=== PATIENT | female | born 1940 | race Caucasian/White ===

== ENCOUNTER 2019-06-03 10:22 | Outpatient (CLI) | payer MEDICARE, SELFPAY ==
[2019-06-03] VITALS (7 sets, daily range): BP systolic 89–150; BP diastolic 62–89; PULSE 84–95; RESP 16–18; TEMP 36.2; O2SAT 93–98
--- NOTE | 2019-06-03 10:27 | DI.RAD.S_ITS ---
PROCEDURE: PAIN L/SI FACET INJ/BLK 1STL INDICATIONS: SPONDYLOSIS FINDINGS: Fluoroscopic spot filming was performed to verify placement of spinal needles at the left L4-L5 and L5-S1 level(s), as labeled on the films. Appropriate location(s) of the needle tip(s) was confirmed by injection of iodinated contrast. IMPRESSION: Left L4-L5 and L5-S1 needle placement. Dictated by: Bob Silverman M.D. on 06/03/2019 at 13:21 Approved by: Bob Silverman M.D. on 06/03/2019 at 13:21
[2019-06-03] MEDS: MIDAZOLAM 5 MG/5 ML VIAL IV (11:16)
[2019-06-03] MEDS: fentaNYL 100 MCG/2 ML INJ 50 MCG IV (11:18)
[2019-06-03] MEDS: LIDOCAINE 1% 20 ML 10 ML INJ (11:30)
[2019-06-03] MEDS: BUPIVACAINE 0.5% (PF) VIAL 2 ML INJ (11:30)
[2019-06-03] MEDS: IOPAMIDOL 15 ML VIAL 3 ML INJ (11:30)
[2019-06-03] MEDS: BETAMETHASONE 30 MG/5 ML MDV 12 MG INJ (11:30)
--- NOTE | 2019-06-03 11:37 | P.PCN_ITS ---
Procedures Date/Time Date of procedure: 06/03/19 Time of procedure: 11:37 General Procedure description: PREOP DIAGNOSIS 1. FACET ARTHROPATHY, 2. AXIAL LBP, 3. MULTILEVEL DDD, POST OP DIAGNOSIS 1. FACET ARTHROPATHY, 2. AXIAL LBP, 3. MULTILEVEL DDD, PROCEDURES 1. FLUORSCOPICALLY GUIDED CONTRAST CONTROLLED FACET JOINT INJECTIONS LEFT L4/5, L5/S1 SURGEON: Benny Schultz, DO INDICATIONS Ngozi is referred by for treatment of Axial LBP FINDINGS Multilevel Facet Arthropathy with Clinically significant axial LBP DESCRIPTION OF PROCEDURE Fluoroscopically guided, contrast-controlled left L4/5, L5/S1 facet joint in jections. Following review of allergy and review of potential side effects and complications, including, but not necessarily limited to, infection, allergic reaction, local tissue breakdown, stroke, temporary or permanent nerve injury, paralysis, and possible , the patient indicated that the patient understood and agreed to proceed. An informed consent document was signed by the patient, witnessed by a nurse, and placed in the patient's chart. Additionally, other treatment options including medications, modalities, and physical therapy were reviewed with the patient. After review of previous anaesthesic history and IV conscious sedation the patient was deemed safe to proceed with todays procedure with IV conscious sedation as ASA class II designation. Safety time-out was performed to confirm patient ID, procedure to be performed and site of procedure. IV sedation was accomplished with a combination of 2mg of Versed and 50mcg of Fentanyl was administered by the RN after DO order, titrated to patient comfort during the course of the procedure while the patient remained responsive to all verbal commands. In the prone position, following sterile prep and drape of the lumbar region, the posterior aspect of the left L4/5, L5/S1 facet joints were identified fluoroscopically. The skin was anesthetized via a 25-gauge 1.5-inch needle with 1% lidocaine solution into the corresponding facet joints. At this point, a 22- gauge 3.5-inch spinal needle was atraumatically introduced and advanced under fluoroscopic guidance into the corresponding facet joints. Following negative aspiration, injections of approximately 0.2-cc of Isovue 200 confirmed interarticular placement without vascular uptake. Radiological data, including multiple fluoroscopic views of the lumbosacral spine, reveal a spinal needle at the left L4/5, L5/S1 facet joints. Subsequent views show flow of contrast material both superiorly and inferiorly within the joint space without vascular or intrathecal uptake. At this point, a total of 0.5cc including a mixture of 0.25cc Marcaine and 0.25cc betamethasone was injected without complication into each of the corresponding facet joints. The procedure tolerated the procedure well without signs or symptoms of complications prior to transfer to the recovery area continued monitoring without incident. The patient was then transferred to the recovery area where they were observed for an appropriate period of time after the injection. The patient reported a VAS score of 7 prior to the procedure and a post-procedure VAS of 0. Total Fluoroscopy Time: 12.7 seconds Total Conscious Sedation Time: 24min POST OP INSTRUCTIONS The patient was provided a Pain Log to continue to record their response to the target-specific procedure prior to follow-up visit with their referring physician. Additionally, specific post-injection care instructions and a contact number to our office were provided if concerns arise regarding possible compli cations associated with the procedure are suspected. Benny Schultz DO Complications: none
--- NOTE | 2019-06-03 11:43 | PC.NURSE ---
ACCEPTED CARE OF PT IN POST PROC AREA IN STABLE CONDITION.
--- NOTE | 2019-06-03 17:26 | PC.NURSE ---
Late entry post procedure note: Time out at 1114. Medicated per providers orders. VSS and O2 Sat WNL throughout procedure. Tolerated procedure well with minimal discomfort. Transferred to / without difficulties. Handoff report given to Juanita Castillo RN. No complaints of pain or unusual numbness or tingling.
== END 2019-06-03 12:02 | disposition home or self-care (01) ==
LOC: RAD 10:27
PROVIDERS: Family Provider Internal Medicine; PCP Internal Medicine; Visit Provider Physical Medicine & Rehabilitation
DX: M47.816 Spondylosis without myelopathy or radiculopathy, lumbar region (principal); M47.817 Spondylosis without myelopathy or radiculopathy, lumbosacral region; M54.5 Low back pain; M51.36 Other intervertebral disc degeneration, lumbar region; M51.37 Other intervertebral disc degeneration, lumbosacral region
CPT/HCPCS: 64493; 64494; 99152; J0702; J2250; J3010

== ENCOUNTER 2019-08-22 14:37 | Outpatient (CLI) | payer MEDICARE, SELFPAY ==
[2019-08-22] VITALS (9 sets, daily range): BP systolic 119–161; BP diastolic 40–109; PULSE 83–94; RESP 16; O2SAT 95–98
--- NOTE | 2019-08-22 14:40 | DI.RAD.S_ITS ---
PROCEDURE: PAIN L/SI FACET INJ/BLK 1STL INDICATIONS: IDIOPATHIC SCOLIOSIS FINDINGS: Fluoroscopic spot filming was performed to verify placement of spinal needles at the L4, L5, S1 level(s), as labeled on the films. Appropriate location(s) of the needle tip(s) was confirmed by injection of iodinated contrast. Dictated by: Nick Bryant M.D. on 08/22/2019 at 17:07 Approved by: Nick Bryant M.D. on 08/22/2019 at 17:07
[2019-08-22] MEDS: MIDAZOLAM 5 MG/5 ML VIAL IV (15:41)
[2019-08-22] MEDS: LIDOCAINE 1% 20 ML 10 ML INJ (15:56)
[2019-08-22] MEDS: IOPAMIDOL 15 ML VIAL 3 ML INJ (15:56)
[2019-08-22] MEDS: BUPIVACAINE 0.5% (PF) VIAL 2 ML INJ (15:56)
--- NOTE | 2019-08-22 16:03 | P.PCN_ITS ---
Procedures Date/Time Date of procedure: 08/22/19 Time of procedure: 16:03 General Procedure description: POST OP DIAGNOSIS 1. FACET ARTHROPATHY PROCEDURES 1. Left L4, L5 and S1 MB BLOCKS PHYSICIAN: DO MAKAYLA Rowley Ngozi is referred by for treatment of Left Axial LBP. DESCRIPTION OF PROCEDURE Fluoroscopically guided, contrast-controlled left L4, L5 and S1 medial branch blocks with 0.5cc of 0.5% Marcaine. Following review of allergy and review of potential side effects and complications, including, but not necessarily limited to, infection, allergic reaction, local tissue breakdown, nerve injury, paralysis, stroke and possible , the patient indicated that the patient understood and agreed to proceed. An informed consent document was signed by the patient, witnessed by a nurse, and placed in the patient's chart. After review of previous anaesthesic history and IV conscious sedation the patient was deemed safe to proceed with todays procedure with IV conscious sedation as ASA class II designation. Safety time-out was performed to confirm patient ID, procedure to be performed and site of procedure. IV sedation was accomplished with a combination of 4mg of Versed and 50mcg of Fentanyl was administered by the RN after DO order, titrated to patient comfort during the course of the procedure while the patient remained responsive to all verbal commands. In the prone position, following sterile prep and drape of the lumbar region, the left L4, L5 and S1 anatomical location of the medial branch of the dorsal ramus was identified fluoroscopically. Subsequently an anesthetic skin wheal using 1% lidocaine solution was initiated at each of the anatomical spots. Subsequently then a 25-gauge 3.5-inch spinal needle was atraumatically introduced and advanced under fluoroscopic guidance at each of the corresponding sites at the left L4, L5 and S1 MB. After negative aspiration, 0.2cc of Isovue 200 was injected, confirming placement without vascular or intrathecal uptake. Subsequently then 0.5cc of 0.5% Marcaine solution was injected at each of the corresponding sites at the left L4, L5 and S1 medial branch locations. The patient tolerated the procedure well without signs or symptoms of complications. The patient tolerated the procedure well without signs or symptoms of complications prior to transfer to the recovery area continued monitoring without incident. Post-procedure, the patient was monitored initiating provocative activities to measure the amount of relief from block of the facetogenic pain. The patient reported a VAS of 7 prior to the procedure and a post-procedure VAS of 1. It has been a pleasure to assist in the diagnostic and therapeutic care of your patient. Total Fluoroscopy Time: 5 seconds Total Conscious Sedation Time: 24 min POST OP INSTRUCTIONS The patient was provided with a Pain Log to complete over the next several hours and subsequent days prior to the patient's follow up with the ordering physician. If the patient has pediatric occupational therapist relief to the solution applied, then they may be a candidate for medial branch rhizotomy. The patient is aware, was provided, once again, with a Pain Log and will follow up with the referring physician for review and clinical correlation. Benny Schultz DO Complications: none
--- NOTE | 2019-08-22 16:08 | PC.NURSE ---
Post procedure transfer note: Patient medicated per providers order for sedation. patient moved throughout procedure secondary to parkinsons. VSS throughout. O2 Sat WNL on 2L/MANAGER DIGITAL. Able to transfer to w/c with 2 standby assist. Pain level 0/10. Handoff report given to Juanita Castillo. Patient transfered to recliner with stand by assist. No complaints of pain on arrival. VSS. on arrival post procedure.
--- NOTE | 2019-08-22 16:08 | PC.NURSE ---
ACCEPTED CARE OF PT IN POST PROC AREA IN STABLE CONDITION AT 1605. VSS, A&OX4, MOBILITY AT BASELINE WITH TREMORS AND UNSTEADY GAIT RT MULTPLESCLEROSIS.
== END 2019-08-22 17:23 | disposition home or self-care (01) ==
LOC: RAD 14:38
PROVIDERS: Family Provider Internal Medicine; PCP Internal Medicine; Visit Provider Physical Medicine & Rehabilitation
DX: M47.817 Spondylosis without myelopathy or radiculopathy, lumbosacral region (principal); M47.816 Spondylosis without myelopathy or radiculopathy, lumbar region; M54.5 Low back pain
CPT/HCPCS: 64493; 64494; 99152; J2250; J3010

== ENCOUNTER → 2019-12-15 09:37 | Outpatient (CLI) | payer MEDICARE, SELFPAY ==
[2019-12-15 21:06] LABS: COVID19 Sendout Not Detected (Not Detect)
== END ==
PROVIDERS: Family Provider Internal Medicine; PCP Internal Medicine; Visit Provider Registered Nurse
DX: Z01.818 Encounter for other preprocedural examination (principal)
CPT/HCPCS: 87635

== ENCOUNTER 2019-12-18 10:02 | Outpatient (CLI) | payer MEDICARE, SELFPAY ==
[2019-12-18] VITALS (9 sets, daily range): BP systolic 105–157; BP diastolic 63–100; PULSE 83–99; RESP 14–16; TEMP 36.6; O2SAT 96–100
--- NOTE | 2019-12-18 10:04 | DI.RAD.S_ITS ---
PROCEDURE: PAIN L/S MED/LAT N RFA INDICATIONS: SPONDYLOSIS FINDINGS: Fluoroscopic spot filming was performed to verify placement of spinal needles at the left L4, L5, and S1 medial branch block areas for rhizotomy level(s), as labeled on the films. Appropriate location(s) of the needle tip(s) was confirmed by injection of iodinated contrast. IMPRESSION: Successful needle tip localizations on the left for rhizotomy procedures as noted. Dictated by: Darin Bhatt M.D. on 12/18/2019 at 15:11 Approved by: Darin Bhatt M.D. on 12/18/2019 at 15:12
[2019-12-18] MEDS: fentaNYL 100 MCG/2 ML INJ 50 MCG IV (11:29)
[2019-12-18] MEDS: MIDAZOLAM 5 MG/5 ML VIAL IV (11:37)
[2019-12-18] MEDS: BUPIVACAINE 0.5% (PF) VIAL 5 ML INJ (11:49)
[2019-12-18] MEDS: LIDOCAINE 1% 20 ML 10 ML INJ (11:49)
--- NOTE | 2019-12-18 11:52 | PC.NURSE ---
ASSISTING PT OFF TABLE AND TRANSPORTING TO POST PROC AREA IN STABLE CONDITION.
--- NOTE | 2019-12-18 12:01 | P.PCN_ITS ---
Procedures Date/Time Date of procedure: 12/18/19 Time of procedure: 12:01 General Procedure description: PREOP DIAGNOSIS 1. RECALCITRANT FACET ARTHROPATHY, POST OP DIAGNOSIS 1. RECALCITRANT FACET ARTHROPATHY, PROCEDURES 1. LEFTT L4 AND L5 MEDIAL BRANCH RADIOFREQUENCY NEUROTOMY AND LEFT S1 DORSAL RAMUS RADIOFREQUENCY NEUROTOMY, PHYSICIAN: DO MAKAYLA Rowley Ngozi is referred by for treatment of facet arthropathy. DESCRIPTION OF PROCEDURE Left L4 and L5 medial branch radiofrequency neurotomy and left S1 dorsal ramus branch radiofrequency neurotomy under fluoroscopy with conscious sedation. The patient is well known to this clinic having undergone previous facet injections with good but temporary relief. The patient has experienced appropriate, concordant relief with previous facet and median branch blocks but the patient's pain has been recalcitrant to further conservative measures. Therefore, based upon the patient's relief and persistent symptoms, the patient is considered an appropriate candidate for facet rhizotomy. All of the patient's questions regarding the risks versus benefits of the procedure, including, but not limited to, bleeding, infection, temporary as well as lasting nerve injury, paralysis, stroke, and , as well treatment alternatives were answered to satisfaction. After obtaining informed consent, denial of pertinent drug allergies, as well as being made aware of the potential risks of bleeding, infection, spinal cord trauma, paralysis, temporary and permanent nerve damage, seizure, stroke, and possible , the patient was brought to the fluoroscopy suite and positioned prone on the fluoroscopy table. The lumbar region was prepped with Betadine and covered with a fenestrated drape in the usual sterile fashion. Appropriate monitors applied including pulse oximeter, pulse, and blood pressure for regular monitoring throughout the procedure. IV sedation was accomplished with a combination of 2mg of Versed and 50mcg of Fentanyl titrated to patient comfort during the course of the procedure while the patient remained responsive to all verbal commands. After local infiltration using 1% lidocaine, under fluoroscopic guidance, a 10- cm RF insulated needle with a 10-mm active tip was positioned parallel to the junction of the left sacral ala and the superior articulating process where the S1 dorsal ramus resides. Needle placement was confirmed with sensory stimulation at 50 Hz, with motor stimulation of .5v on the left which produced local stimulation without radicular component. The stimulation was then increased to 1.5v with, once again, only local multifidus stimulation without radicular component. This was then followed by two discreet lesions performed at 80 degrees Celsius for 90 seconds each. The needle was then removed and the identical procedure was performed along the length of the left L5 medial branch with motor stimulation at .7v on the leftt. The identical procedure was once again performed along the length of the left L4 medial branch with motor stimulation of .5v on the left. The patient tolerated the procedure well without signs or symptoms of complications prior to transfer to the recovery area continued monitoring without incident. The patient was then transferred to the recovery area where they were observed for an appropriate period of time after the injection. The patient was then transferred to the recovery area where they were observed for an appropriate period of time after the injection. The patient reported a VAS score of 9 prior to the procedure and a post- procedure VAS of 0. Total Fluoroscopy Time: 8 seconds Total Conscious Sedation Time: 34min POST OP INSTRUCTIONS The patient was provided a Pain Log to continue to record the patient's response to the target-specific procedure prior to the patient's follow-up visit with the referring physician. Additionally, specific post-injection care instructions and a contact number to our office were provided if concerns arise regarding possible complications associated with the procedure are suspected. Benny Schultz, Complications: none
== END 2019-12-18 12:22 | disposition home or self-care (01) ==
LOC: RAD 10:04
PROVIDERS: Family Provider Internal Medicine; Referring Provider Physical Medicine & Rehabilitation; Visit Provider Physical Medicine & Rehabilitation
DX: M47.816 Spondylosis without myelopathy or radiculopathy, lumbar region (principal); M47.817 Spondylosis without myelopathy or radiculopathy, lumbosacral region
CPT/HCPCS: 64635; 64636; 99152; J2250; J3010

== ENCOUNTER → 2020-02-28 08:57 | Outpatient (CLI) | payer MEDICARE, SELFPAY ==
[2020-03-01 21:03] LABS: COVID19 Sendout Not Detected (Not Detect)
== END ==
PROVIDERS: Family Provider Internal Medicine; Visit Provider Physician Assistant
DX: Z11.59 Encounter for screening for other viral diseases (principal)
CPT/HCPCS: 87635

== ENCOUNTER 2020-03-02 08:49 | Outpatient (CLI) | payer MEDICARE, SELFPAY ==
[2020-03-02] VITALS (9 sets, daily range): BP systolic 101–138; BP diastolic 53–78; PULSE 68–89; RESP 15–18; TEMP 36; O2SAT 97–100
--- NOTE | 2020-03-02 09:00 | DI.RAD.S_ITS ---
PROCEDURE: PAIN L/S TRANSFORAMINAL INJECT INDICATIONS: SPONDYLOSIS COMPARISON: None. FINDINGS: Fluoroscopic spot filming was performed to verify placement of spinal needles at the L3-L4 level(s), as labeled on the films. Appropriate location(s) of the needle tip(s) was confirmed by injection of iodinated contrast. Dictated by: Nick Bryant M.D. on 03/02/2020 at 10:45 Approved by: Nick Bryant M.D. on 03/02/2020 at 10:46
--- NOTE | 2020-03-02 09:44 | PC.NURSE ---
Pt having a bad day with parkinson's. Difficulty ambulating. Dr Schultz aware. Pt concerned for med administration needed at 1100. Reassured her we will ensure she takes her meds on time. Vital stable. Pain 310
[2020-03-02] MEDS: fentaNYL 100 MCG/2 ML INJ 50 MCG IV (10:11)
[2020-03-02] MEDS: MIDAZOLAM 5 MG/5 ML VIAL IV (10:11)
[2020-03-02] MEDS: BUPIVACAINE 0.25% (PF) VIAL 2 ML INJ (10:12)
[2020-03-02] MEDS: IOPAMIDOL 15 ML VIAL 3 ML INJ (10:12)
[2020-03-02] MEDS: BETAMETHASONE 30 MG/5 ML MDV 6 MG INJ (10:12)
[2020-03-02] MEDS: DEXAMETHASONE 10 MG/ML VIAL 20 MG INJ (10:12)
--- NOTE | 2020-03-02 10:20 | P.PCN_ITS ---
Date/Time/Diagnoses Date of procedure: 03/02/20 Time of procedure: 10:20 Pre-procedure diagnosis: 1. FORAMINAL STENOSIS WITH LE SYMPTOMS Post-procedure diagnosis: same Procedure Notes Procedure: 1. FLUOROSCOPICALLY GUIDED CONTRAST CONTROLLED TRANSFORAMINAL EPIDURAL STEROID INJECTION - LEFT L3/4 TFESI Indications: Ngozi is referred by Dr. Foster for treatment of Foraminal Stenosis with left LE Symptoms Physician: Benny Schultz Total Fluoroscopy time (seconds): 6 Total sedation minutes: 8 Complications: none Procedure in detail & Post-procedure care: FINDINGS Foraminal Nerve Root Compression secondary to disc disease and facet hypertrophy DESCRIPTION OF PROCEDURE Following review of allergy and review of potential side effects and complications, including, but not necessarily limited to, infection, allergic reaction, local tissue breakdown, stroke, temporary or permanent nerve injury, paralysis, and possible , the patient indicated that the patient understood and agreed to proceed. An informed consent document was signed by the patient, witnessed by a nurse, and placed in the patient's chart. Additionally, other treatment options including medications, modalities, and physical therapy were reviewed with the patient. After review of previous anaesthesic history and IV conscious sedation the patient was deemed safe to proceed with today?s procedure with IV conscious sedation as ASA class II designation. Safety time-out was performed to confirm patient ID, procedure to be performed and site of procedure. IV sedation was accomplished with a combination of 2mg of Versed and 50mcg of Fentanyl was administered by the RN after DO order, titrated to patient comfort during the course of the procedure while the patient remained responsive to all verbal com mands In the prone position following sterile prep and drape of the lumbar region, the left L3/4 posterior neuroforamen was identified fluoroscopically. The skin was anesthetized via a 25-gauge 1.5-inch needle with 1% lidocaine solution. At this point, a 25-gauge 3.5-inch spinal needle was atraumatically introduced and advanced under fluoroscopic guidance through the posterior left L3/4 neurofo ramen to approximately the anterior aspect of the canal. Depth was confirmed on lateral view. Following negative aspiration, injection of approximately 1.5 cc of Isovue 200 under live fluoroscopy in the AP view confirmed excellent flow along the nerve root, into the epidural space without vascular or intrathecal uptake observed Radiological data, including multiple fluoroscopic views of the lumbosacral spine, reveal a spinal needle at the left L3/4 posterior neuroforamen. Subsequent views show flow of contrast material flowing superiorly and inferiorly along the nerve root confirming epidural flow. Subsequently, a test dose of 1.5 cc of 1% lidocaine solution was administered and patient was observed for two minutes for signs or symptoms of complications, including abdominal pain, shortness of breath, bilateral upper or lower extremity weakness, nausea and vomiting, prior to steroid injection. At this point, a total of 3cc or 20mg of dexamethasone and 6mg betamethasone was inj ected without incident. The patient tolerated the procedure well without signs or symptoms of complications prior to transfer to the recovery area continued monitoring without incident. The patient was then transferred to the recovery area where they were observed for an appropriate time after the injection. The patient reported a VAS score of 7 prior to the procedure and a post-procedure VAS of 0. POST OP INSTRUCTIONS The patient was provided a Pain Log to continue to record their response to the target-specific procedure prior to follow-up visit with their referring physician. Additionally, specific post-injection care instructions and a contact number to our office were provided if concerns arise regarding possible complications associated with the procedure are suspected.
--- NOTE | 2020-03-02 10:37 | PC.NURSE ---
Pt tolerated procedure well. Denies pain. Tolerating cookies and water. Friend is driving her home. IV removed without issue. Will monitor vitals Q5 until 1050. Vitals stable.
--- NOTE | 2020-03-02 12:31 | PC.NURSE ---
1020: tolerated procedure well, 2PA to transfer from table to , returned to pre proc room for observation
--- NOTE | 2020-03-02 15:52 | PC.NURSE ---
1022 pt tolerated procedure well, 2PA transfer from table to . returned to pre proc room for further observation
== END 2020-03-02 10:55 ==
PROVIDERS: Family Provider Internal Medicine; Referring Provider Physical Medicine & Rehabilitation; Visit Provider Physical Medicine & Rehabilitation
DX: M48.061 Spinal stenosis, lumbar region without neurogenic claudication (principal); M51.16 Intervertebral disc disorders with radiculopathy, lumbar region
CPT/HCPCS: 64483; 99152; J0702; J1100; J2250; J3010

== ENCOUNTER → 2020-04-19 12:13 | Outpatient (CLI) | payer MEDICARE, SELFPAY ==
--- NOTE | 2020-04-19 12:15 | DI.RAD.S_ITS ---
PROCEDURE: XR LUMBAR SPINE MIN 4V INDICATIONS: lumba pain TECHNIQUE: 5 views of the lumbar spine were acquired. COMPARISON: None. FINDINGS: Bones: No fracture. Multilevel degenerative endplate sclerosis and spurring. Diffuse facet arthropathy. Severe narrowing of the L2-L3 disc space. Grade 1 anterolisthesis of L2 on L3 and L3 on L4. Levocurvature. Bilateral hip joint degeneration. Sacroiliac degenerative sclerosis and spurring. Soft tissues: Overlying bowel gas pattern is normal. No suspicious soft tissue calcifications. Oblique images: No pars defects. IMPRESSION: Multilevel lumbar spondylosis and levoscoliosis as above Dictated by: Nick Bryant M.D. on 04/19/2020 at 12:52 Approved by: Nick Bryant M.D. on 04/19/2020 at 12:56
== END ==
PROVIDERS: Family Provider Internal Medicine; Referring Provider Physical Medicine & Rehabilitation; Visit Provider Physical Medicine & Rehabilitation
DX: M47.816 Spondylosis without myelopathy or radiculopathy, lumbar region (principal); M47.817 Spondylosis without myelopathy or radiculopathy, lumbosacral region; M43.16 Spondylolisthesis, lumbar region; M51.26 Other intervertebral disc displacement, lumbar region; M41.27 Other idiopathic scoliosis, lumbosacral region; M16.0 Bilateral primary osteoarthritis of hip; G20 Parkinson's disease
CPT/HCPCS: 72110; 99214